=== PATIENT | female | born 1990 | race Caucasian/White ===

== ENCOUNTER → 2016-08-18 | Outpatient (REF) | payer OTHER ==
[~2016-08-18] MED LIST: ACET50TA PO; COLA100C3 PO; IBUP80TA PO; PREN1TAB11 PO
[2016-08-25 11:27] LABS: HSV 1 NAA Negative; HSV 2 NAA Negative; Trich vag by NAA Negative
== END ==
LOC: M LAB REF 12:25
PROVIDERS: ATTEND Obstetrics & Gynecology
DX: Z01.419 Encounter for gynecological examination (general) (routine) without abnormal findings (principal); Z11.3 Encounter for screening for infections with a predominantly sexual mode of transmission